=== PATIENT | female | born 1995 | race Caucasian/White ===

== ENCOUNTER 2025-03-13 21:06 | Emergency (ER) | payer BC ==
[2025-03-13] MEDS: Fluorescein 1 MG Ophth Strip EYERT ONE (21:37)
[2025-03-13] MEDS: Ondansetron 4 MG Tab.DIS PO ONE (21:59)
[2025-03-13] MEDS: Ketorolac 30 MG/ML SDV IM ONE (22:07)
== END 2025-03-13 22:12 | disposition home or self-care (01) ==
LOC: DL.ED 21:06
DX: S05.01XA Injury of conjunctiva and corneal abrasion without foreign body, right eye, initial encounter (principal); H16.001 Unspecified corneal ulcer, right eye; X58.XXXA Exposure to other specified factors, initial encounter; Y93.89 Activity, other specified
CPT/HCPCS: 96372; 99283; A9270; J1885; J3490